=== PATIENT | male | born 1985 | race Caucasian/White ===

== ENCOUNTER 2017-01-29 15:57 | Emergency (ER) ==
[2017-01-29 16:10] VITALS: BP 158/95
--- NOTE | 2017-01-29 17:24 | PROVIDER DOCUMENTATION ---
HPI-Rash/Wound/ReCheck - General Chief Complaint: Insect Bite/Sting Stated Complaint: ABSCESS Time Seen by Provider: 01/29/17 17:21 Source: patient Allergies/Adverse Reactions: Allergies Allergy/AdvReac Type Severity Reaction Status Date / Time No Known Allergies Allergy Verified 01/29/17 16:09 Home Medications: Home Medication List Medication Instructions Recorded Confirmed Last Taken Type Methocarbamol [Robaxin-750] 750 mg PO Q8H PRN PRN #21 tablet 02/11/15 01/29/17 Unknown Rx Naproxen 500 mg PO BID #20 tablet 02/11/15 01/29/17 Unknown Rx Mupirocin Ointment [Bactroban 1 applicatn TOP TID #1 tube 01/29/17 Unknown Rx Ointment] Sulfamethoxazole/Trimethoprim 1 each PO BID #10 tablet 01/29/17 Unknown Rx [Bactrim Ds Tablet] - History of Present Illness-Dermatology Nature of Presenting Problem: 31 y/o WM c/o abscess to the right forearm x 3 days ago. Started like a pimple then progressed, now approx 3 cm x 3 cm. Denies fevers, chill, circumference redness or streaking. No pre-arrival treatment Review of Systems - Adult - REVIEW OF SYSTEMS - ADULT Constitutional: reports: no symptoms reported. denies: chills, fatique Eyes: reports: no symptoms reported. denies: eye pain Ears, Nose, Mouth & Throat: reports: no symptoms reported. denies: ear pain Cardiovascular: reports: no symptoms reported. denies: chest pain Respiratory: reports: no symptoms reported. denies: shortness of breath Gastrointestinal: reports: no symptoms reported. denies: abdominal pain Genitourinary: reports: no symptoms reported Musculoskeletal: reports: no symptoms reported. denies: joint pain Integumentary: reports: skin sores/ulcer. denies: rash Neurological: reports: no symptoms reported. denies: headache/migraines Psychiatric: reports: no symptoms reported Endocrine: reports: no symptoms reported Hematologic/Lymphatic: reports: no symptoms reported Allergic/Immunologic: reports: no symptoms reported All Other Systems: Reviewed and Negative Past History - Adult - PAST MEDICAL HISTORY-ADULT Review of Records: reports: Old Records Reviewed, Nursing Assessment Review, Medications Reviewed Major Childhood Illnesses: reports: denies history Cardiovascular: reports: denies history Respiratory: reports: denies history Gastrointestinal: reports: denies history Obstetrical/Gynecological: reports: denies history Genitourinary: reports: denies history Musculoskeletal: reports: denies history Neurological: reports: denies history Psychiatric: reports: denies history Endocrine/Immune: reports: denies history Other Conditions: reports: denies history - PRIOR SURGERIES/PROCEDURES Surgical/Procedure History: reports: none - IMMUNIZATION STATUS Childhood Immunizations: UTD Flu Vaccine: NUTD - FAMILY HISTORY Family History: reviewed, not pertinent Physical Exam-General - PHYSICAL EXAM-ADULT Initial Vital Signs Reviewed: Yes - CONSTITUTIONAL General Appearance: appears well, alert, no apparent distress - EYES Eyes: PERRL/EOMI, pink conjunctivae - HEAD, EARS, NOSE, MOUTH & THROAT HENMT: normocephalic/atraumatic, moist mucous membranes - NECK Neck: supple - RESPIRATORY Respiratory: chest non-tender, lungs clear, normal breath sounds, no pleuratic chest pain, no respiratory distress, no accessory muscle use - CARDIOVASCULAR Cardiovascular: normal peripheral pulses, regular rate, rhythm - MUSCULOSKELETAL Extremity: normal range of motion, non-tender, normal gait, normal inspection - SKIN Integumentary: normal color, normal turgor, warm/dry, other (cellulitis 3 cm x 3 cm, no fluctuant mass) Progress - PLAN OF CARE/RESULTS Progress/Plan/Lab Results: Vital Signs Temp Pulse Resp BP Pulse Ox 01/29/17 16:06 98.2 F 87 15 158/95 99 No Known Allergies Allergy (Verified 01/29/17 16:09) Methocarbamol [Robaxin-750] 750 mg PO Q8H PRN PRN #21 tablet 02/11/15 Naproxen 500 mg PO BID #20 tablet 02/11/15 Mupirocin Ointment [Bactroban Ointment] 1 applicatn TOP TID #1 tube 01/29/17 Sulfamethoxazole/Trimethoprim [Bactrim Ds Tablet] 1 each PO BID #10 tablet 01/29 Departure - Departure Time of Disposition Order: 17:24 DIAGNOSIS: Cellulitis Qualifiers: Site of cellulitis: extremity Site of cellulitis of extremity: upper extremity Laterality: right Qualified Code(s): L03.113 - Cellulitis of right upper limb Disposition: HOME 01 Certified Medical Emergency: Emergent Condition: Stable Additional Instructions: ED Follow Up Instructions: You have been treated by a care provider in the Emergency Department. These instructions are being provided to you so you can have an understanding of how to care for yourself upon discharge. Upon discharge from the Emergency Department, you are responsible for making arrangements for follow-up care by a physician of your choice. Take all prescribed medications as directed. Return to the Emergency Department immediately for any new or worsening symptoms. You may call the Physician Referral phone number at [phone] to obtain a list of Physicians who are taking new patients. Prescriptions: Sulfamethoxazole/Trimethoprim [Bactrim Ds Tablet] 1 each PO BID #10 tablet Mupirocin Ointment [Bactroban Ointment] 1 applicatn TOP TID #1 tube Referrals: None,PCP [Primary Care Provider] - Fuad Coley MD [STAFF PHYSICIAN] - Forms: Return to School/Parent Work Instructions: Cellulitis, Mupirocin skin cream or ointment, Sulfamethoxazole; Trimethoprim, SMX-TMP tablets Attestation - Physician/ LONA Attestation Patient care was provided by Advanced Practice Provider:: Yes Advanced Practice Provider:: Anel Lynn Advanced Practice Provider documentation review:: The Mid-level provider documentation, treatment plan and medical decision making was reviewed by the physician who agrees with all treatment and medical decision making by the [facility].
== END 2017-01-29 17:41 | disposition home or self-care (01) ==
LOC: P.ED 15:57
DX: L03.113 Cellulitis of right upper limb (principal); Z79.899 Other long term (current) drug therapy